=== PATIENT | male | born 1990 | race Caucasian/White ===

== ENCOUNTER 2022-05-17 12:10 | Emergency (ER) | payer SELFPAY ==
[~2022-05-17] VITALS: Ht 165.1 cm; Wt 72.6 kg
[2022-05-17 17:14] VITALS: BP 126/68
--- NOTE | 2022-05-17 17:14 | NUR ---
PT AWAKE VERBALLY RESPONSIVE, AAOX3. REQUESTED TO BE DISCHARGED. DENIES SI/HI. DR ROGERS IN TO SEE PATIENT. CLEARED. DISCHARGED IN STABLE CONDITION.
--- NOTE | 2022-05-17 17:15 | NUR ---
Patient discharged to home in stable condition. Written and verbal after care instructions given. Patient verbalizes understanding of instruction.
== END 2022-05-17 17:15 | disposition home or self-care (01) ==
LOC: ER 12:20
DX: F10.129 Alcohol abuse with intoxication, unspecified (principal); Z60.2 Problems related to living alone; Y90.9 Presence of alcohol in blood, level not specified